=== PATIENT | male | born 1985 | race Caucasian/White ===

== ENCOUNTER 2016-12-18 04:59 | Emergency (ER) | payer OTHER ==
[2016-12-18 06:46] VITALS: BP 127/88
== END 2016-12-18 06:46 | disposition other institution (70) ==
LOC: ED 04:59
DX: S51.852A Open bite of left forearm, initial encounter (principal); L03.114 Cellulitis of left upper limb; W54.0XXA Bitten by dog, initial encounter; Y93.89 Activity, other specified; Y92.89 Other specified places as the place of occurrence of the external cause; Y99.8 Other external cause status
CPT/HCPCS: J0696

== ENCOUNTER 2016-12-18 04:59 | Emergency (ER) | payer OTHER | END 2016-12-18 06:46 | disposition other institution (70) | LOC: ED 04:59 | DX: Z02.89 Encounter for other administrative examinations (principal) ==